=== PATIENT | female | born 1960 | race Caucasian/White ===

== ENCOUNTER → 2017-10-01 | Outpatient (CLI) | payer OTHER ==
[~2017-10-01] MED LIST: DOXYCYCLINE 10100 MG PO; HUMIRA40 MG/0.1 SQ; PERCOCET PO; SERTRALINE HCL50 MG PO
== END ==
LOC: RAD 15:08
DX: R06.02 Shortness of breath (principal); L73.2 Hidradenitis suppurativa; Z79.899 Other long term (current) drug therapy

== ENCOUNTER → 2018-12-30 | Outpatient (CLI) | payer OTHER | LOC: LABMALL 15:09 | DX: L73.2 Hidradenitis suppurativa (principal); R06.00 Dyspnea, unspecified; Z79.899 Other long term (current) drug therapy ==

== ENCOUNTER → 2020-10-03 | Day surgery (SDC) | payer BC ==
[~2020-10-03] VITALS: Ht 167.6 cm; Wt 81.2 kg
[~2020-10-03] MED LIST changes: +BUPROPION XL300 MG PO; +HUMIRA PEN40 MG/0.4 SUBQ; +HYDROCODON-ACE1 EAC7 PO; +PREMPRO 0.625-1 EACH PO; +PRILOSEC OTC20 MG PO
[2020-10-03 11:19] LABS: HEMATOCRIT 41.2 % (37.0-47.0); HEMOGLOBIN 13.9 gm/dL (12.0-15.0)
[2020-10-03 16:29] VITALS: BP 130/85
--- NOTE | 2020-10-04 12:24 | O ---
[facility] [place] [address] OPERATIVE REPORT Name: SKYLAR PATTON Room #: REG [facility] M.R.#: [id number] Admission: 10/03/20 Attend Phys: Henry Vo MD Discharge: Date of : 62 Report #: [id number] THIS REPORT FOR: cc: Physician not on staff Physician not on staff Henry Vo MD ~ DATE OF SERVICE: 10/03/2020 PREOPERATIVE DIAGNOSES: 1. Hidradenitis, right buttock and sacral area. This is extensive. 2. Hidradenitis of the right upper inner thigh. POSTOPERATIVE DIAGNOSES: 1. Hidradenitis, right buttock and sacral area. This is extensive. 2. Hidradenitis of the right upper inner thigh. PROCEDURE PERFORMED: Excision of hidradenitis full thickness including subcutaneous fat and tracking sinus and the tunneling with primary closure, performed of the right buttock sacral area, extensive amount and then also extensive amount in the right upper inner thigh. ANESTHESIA: General. SURGEON: Henry Vo MD COMPLICATIONS: None. ESTIMATED BLOOD LOSS: 70 mL. PROCEDURE NOTE: With the patient under general anesthesia, placed in the lateral position with the right side down. This exposed the right sacral buttock hidradenitis. This was prepped with Betadine, toweled off and draped in sterile fashion. Timeout was performed. Probe was inserted and does go quite a bit through this whole involved area. The involved area is thickened and can be palpated with finger. There were 2 separate holes that were identified. Ultrasound, I had done in the office, showed that this is fairly superficial. The skin ellipse was drawn and then excised into. It was carried down to the subcutaneous fat, removing all the involved areas. Irrigation was performed, hemostasis obtained with cautery. Subcutaneous fat was brought together with 3-0 PDS in interrupted fashion. Skin was closed with 4-0 nylon and 3-0 nylon suture in interrupted fashion. Hemostasis was well obtained. Wound closed up well. The patient was then turned to the supine position. With the patient's right frog leg, the hidradenitis was exposed. This was prepped and toweled off in sterile fashion. Local anesthetic was placed. A [facility] [address] [place] [address] OPERATIVE REPORT Name: SKYLAR PATTON ISAMAR Room #: REG [facility] [place] [place] M..#: [id number] Admission: 10/03/20 Attend Phys: Henry Vo MD Discharge: Date of : 62 Report #: [id number] 0.25% Marcaine 10 mL was injected. The involved area was marked with marking pen and excised in elongated elliptical manner. Dissection carried through subcutaneous tissue. Healthy tissue was found. After excising this area, the skin was closed with 3-0 and 4-0 nylon suture in interrupted fashion. No subcutaneous fat tissue sutures were needed to be placed. Steri-Strips, antibiotic ointment, 4 x 4 bandage was applied. The patient tolerated the procedure well and was taken to recovery room. <ELECTRONICALLY SIGNED> By: Henry Vo MD 10/04/20 1224 2215 2225 Henry Vo MD /nt
--- NOTE | 2020-10-07 19:07 | PATH ---
[facility] [address] [place] [address] PATHOLOGY RPT PROCEDURE Name: MAYTE MAGALLANES ISAMAR Room #: REG [facility] [place] M.R.#: [id number] Admission: 10/03/20 Date of : 62 Discharge: Report #: [id number] Path Case #: [id number] [facility] Accession Number: [id number] . 01 Material submitted: . PART A: buttock - HIDRADENITIS RIGHT BUTTOCK. Modifiers: right PART B: thigh - HIDRADENITIS RIGHT UPPER MEDIAL THIGH. Modifiers: right, upper, medial . 01 Clinical history: . EXCISION HIDRADENITIS . 02 Diagnosis: A. Skin, hidradenitis right buttock, excision: - Mature keratinous cyst associated with exuberant acute and chronic inflammation, consistent with rupture and abscess formation. - Negative for malignancy. . B. Skin, hidradenitis right upper medial thigh, excision: - Mature keratinous cyst associated with exuberant acute and chronic inflammation, consistent with rupture and abscess formation. - Negative for malignancy. . (IUV:mml; 10/07/2020) QLM 10/07/2020 1619 Local . 02 Electronically signed: . Xi Covington MD, Pathologist NPI- [id number] . 01 Gross description: . A. The specimen is received in formalin, labeled "Mayte Magallanes, hidradenitis right buttock". Received is irregular excision of pale fernandez skin with attached underlying fibroadipose tissue measuring 12.8 x 5.0 x 3.7 cm in greatest dimensions. Sectioning reveals bright yellow cut surfaces with several abscessed areas ranging in size from 0.8-1.5 cm in maximum dimensions. The specimen is submitted representatively in cassettes A1 and A2. . B. The specimen is received in formalin, labeled "Mayte Magallanes, hidradenitis right upper medial thigh". Received is an excision of pale fernandez skin with attached underlying fibroadipose tissue measuring 9.0 x 3.8 x 2.4 cm in greatest dimensions. Sectioning reveals bright yellow to pink-cole cut surfaces with several small cystic to abscessed areas within the skin ranging in size from 0.3-0.6 cm. The specimen is submitted representatively in cassette B1. (CAA; 10/04/2020) [place] [address] PATHOLOGY RPT PROCEDURE Name: MAYTE MAGALLANES ISAMAR Room #: REG [facility] M.R.#: [id number] Admission: 10/03/20 Date of : 62 Discharge: Report #: [id number] Path Case #: [id number] QAC/QAC 10/04/20201653 Local . 02 Pathologist provided ICD-10: L72.0, L98.9, L02.31 . 02 CPT . 126087, 659647 Specimen Comment: A courtesy copy of this report has been sent to [phone] Specimen Comment: Report sent to Performed at: [address] [facility], [place], [place] [id number] MD Hilton Caruso MD Phone: [phone] Performed at: [address] [facility] [id number] MD Xi Covington MD Phone: [phone]
== END | disposition home or self-care (01) ==
LOC: OR 08:38
PROVIDERS: ATTEND Surgery
DX: L73.2 Hidradenitis suppurativa (principal); L72.0 Epidermal cyst; L98.9 Disorder of the skin and subcutaneous tissue, unspecified; L02.31 Cutaneous abscess of buttock; F32.9 Major depressive disorder, single episode, unspecified; F41.9 Anxiety disorder, unspecified; K21.9 Gastro-esophageal reflux disease without esophagitis; Z98.890 Other specified postprocedural states; Z79.899 Other long term (current) drug therapy; Z85.828 Personal history of other malignant neoplasm of skin; Z90.49 Acquired absence of other specified parts of digestive tract; Z88.6 Allergy status to analgesic agent
CPT/HCPCS: 50010; 50101; 50386; 50417; 56526; 56527; 62110; 62900; 70005